=== PATIENT | female | born 2000 | race Caucasian/White ===

== ENCOUNTER 2024-06-21 05:17 | Emergency (ER) | payer MEDICAID ==
[~2024-06-21] VITALS: Ht 162.6 cm; Wt 87.0 kg
[2024-06-21 05:23] VITALS: O2SAT 99
[2024-06-21] MEDS ORDERED: IBUP-2028 PO (07:03)
[2024-06-21] MEDS ORDERED: AMOX1TAB16 PO (07:03)
[2024-06-21 07:10] VITALS: BP 112/63; PULSE 80; RESP 20; TEMP 98.9
== END 2024-06-21 07:13 | disposition home or self-care (01) ==
LOC: ER 05:33
DX: H66.92 Otitis media, unspecified, left ear (principal)
CPT/HCPCS: 99283

== ENCOUNTER 2025-03-31 15:04 | Emergency (ER) | payer SELFPAY ==
[~2025-03-31] VITALS: Ht 162.6 cm; Wt 83.0 kg
[~2025-03-31 15:04] MED LIST: AMOX1TAB16 PO; IBUP-2028 PO
[2025-03-31 15:17] VITALS: TEMP 36.9; O2SAT 99
[2025-03-31 16:49] LABS: EOSINOPHILS % 2.1 % (0.0-5.0); HEMATOCRIT. 40.7 % (36.0-48.0); HEMOGLOBIN. 13.4 g/dL (12.0-16.0); LYMPHOCYTES % 25.4 % (20.0-50.0); MEAN CORPUSCULAR HGB CONC 32.9 g/dL (31.0-37.0); MEAN CORPUSCULAR VOLUME 85.1 fL (81.0-99.0); MEAN PLATELET VOLUME 9.9 fl (7.4-10.4); MONOCYTES % 4.2 % (2.0-8.0); NEUTROPHILS % 67.3 % (40.0-76.0); PLATELET 247 x1000/uL (130-400); RED BLOOD CELL COUNT 4.78 mill/uL (4.2-5.4); RED CELL DISTRIBUTION WIDTH 13.9 % (11.6-14.6); WHITE BLOOD COUNT 9.6 x1000/uL (4.5-11.0)
[2025-03-31 17:00] LABS: CARBON DIOXIDE 26 mEq/L (21-32); CHLORIDE 102 mEq/L (98-107); POTASSIUM 3.7 mEq/L (3.5-5.1); SODIUM 138 mEq/L (136-145)
[2025-03-31 17:01] LABS: CALCIUM 9.8 mg/dL (8.7-10.4)
[2025-03-31 17:06] LABS: CREATININE 0.8 mg/dL (0.6-1.0); GLUCOSE 95 mg/dL (70-105); UREA NITROGEN BLOOD 13 mg/dL (9-23)
[2025-03-31 18:03] LABS: HCG SCREEN NEGATIVE
[2025-03-31 18:56] LABS: CLARITY URINE TURBID (CLEAR); COLOR URINE ORANGE (YELLOW); GLUCOSE URINE NEGATIVE (NEGATIVE); KETONES URINE 1+ (NEGATIVE); LEUKOCYTE ESTERASE URINE 1+ (NEGATIVE); NITRITE URINE NEGATIVE (NEGATIVE); OCCULT BLOOD URINE 3+ (NEGATIVE); PH URINE 5.5 (4.5-8.0); PROTEIN URINE 2+ (NEGATIVE); SPECIFIC GRAVITY URINE 1.025 (1.005-1.030)
[2025-03-31 19:15] VITALS: BP 169/99; PULSE 96; RESP 15; O2SAT 99
[2025-03-31 19:53] LABS: BACTERIA URINE TRACE; RBC URINE TNTC /hpf (0-2); SQUAMOUS EPITHELIAL CELL URINE NONE SEEN /lpf (RARE/1+); WBC URINE 0-2 /hpf (0-2); YEAST URINE 1+
== END 2025-03-31 19:17 | disposition home or self-care (01) ==
LOC: ER 15:04
DX: N94.6 Dysmenorrhea, unspecified (principal); D64.9 Anemia, unspecified; Z79.899 Other long term (current) drug therapy
CPT/HCPCS: 36415; 80048; 81003; 84703; 85025; 86850; 86900; 99283